=== PATIENT | male | born 1985 | race Asian ===

== ENCOUNTER 2017-06-30 16:23 | Emergency (ER) | payer SELFPAY ==
[~2017-06-30] VITALS: Ht 170.2 cm; Wt 100.0 kg
[~2017-06-30 16:23] MED LIST: CEPHALEXIN500 M1 PO; NO HOME MEDICATIONS
[2017-06-30 16:26] VITALS: BP 130/80; TEMP 98.1
[2017-06-30] MEDS ORDERED: ZITHROMAX Z PA250 MG PO (18:12)
[2017-06-30] MEDS ORDERED: PREDNISONE20 MG PO (18:12)
[2017-06-30 18:15] VITALS: PULSE 82
== END 2017-06-30 18:15 | disposition home or self-care (01) ==
LOC: COL.ER 16:23
DX: J40 Bronchitis, not specified as acute or chronic (principal); F17.210 Nicotine dependence, cigarettes, uncomplicated

== ENCOUNTER 2019-05-07 13:02 | Emergency (ER) | payer SELFPAY ==
[~2019-05-07] VITALS: Ht 170.2 cm; Wt 102.3 kg
[~2019-05-07 13:02] MED LIST changes: +PREDNISONE20 MG PO; +ZITHROMAX Z PA250 MG PO
[2019-05-07 13:07] VITALS: TEMP 98.1
[2019-05-07 13:50] LABS: BASO % 0.5 % (0.0-2.0); EOS # 0.2 (0.0-0.7); EOS % 2.6 % (0-4.0); GRAN # 5.6 (1.4-6.5); GRAN % 64.7 % (42.2-75.2); HEMATOCRIT 44.6 % (42.0-52.0); HEMOGLOBIN 15.1 g/dl (13.5-18.0); LYMPH % 22.7 % (20.0-51.0); MEAN CELL VOLUME 95 fl (80.0-100.0); MEAN CORPUSCULAR HEMOGLOBIN 32 pg (27.0-31.0); MEAN CORPUSCULAR HGB CONC 34 g/dl (33.0-37.0); MEAN PLATELET VOLUME 10.1 fl (7.4-10.4); MONO # 0.8 (0.1-0.6); MONO % 8.8 % (1.7-9.3); PLATELET COUNT 247 K/mm3 (130-400); REDCELL DISTRIBUTION WIDTH-CV 12.7 % (11.5-14.5)
[2019-05-07 14:04] LABS: ALBUMIN 4.2 gm/dL (3.5-5.0); BILIRUBIN,TOTAL 0.5 mg/dL (0.0-1.0); C-REACTIVE PROTEIN 1.6 mg/dL (0.0-0.9); CALCIUM 9.1 mg/dL (8.4-10.2); CREATININE, serum 0.95 (0.66-1.25); POTASSIUM 3.8 mmol/L (3.4-5.0); TOTAL PROTEIN 7.6 gm/dL (6.4-8.2); URIC ACID 7.6 mg/dL (3.5-8.5)
[2019-05-07 14:20] LABS: ERYTHROCYTE SEDIMENTATION RATE 11 mm/hr (0-15)
[2019-05-07 14:56] VITALS: BP 103/72; PULSE 72
== END 2019-05-07 14:57 | disposition home or self-care (01) ==
LOC: COL.ER 13:02
PROVIDERS: Nurse Practitioner
DX: R60.0 Localized edema (principal); F17.210 Nicotine dependence, cigarettes, uncomplicated

== ENCOUNTER 2020-09-03 10:03 | Emergency (ER) | payer SELFPAY ==
[~2020-09-03] VITALS: Ht 170.2 cm; Wt 109.1 kg
[2020-09-03 10:10] VITALS: TEMP 97.7
[2020-09-03 11:55] VITALS: BP 118/79; PULSE 79
== END 2020-09-03 11:55 | disposition home or self-care (01) ==
LOC: COL.ER 10:03
DX: B34.8 Other viral infections of unspecified site (principal); F17.210 Nicotine dependence, cigarettes, uncomplicated; Z20.822 Contact with and (suspected) exposure to COVID-19; Z87.820 Personal history of traumatic brain injury